=== PATIENT | male | born 1990 | race Caucasian/White ===

== ENCOUNTER 2019-01-31 12:01 | Emergency (ER) | payer BC, MEDICAID ==
[~2019-01-31] VITALS: Ht 175.3 cm; Wt 81.6 kg
--- NOTE | 2019-01-31 12:08 | NUR ---
AT BEDSIDE FOR EVAL.
--- NOTE | 2019-01-31 12:10 | NUR ---
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
[2019-01-31] MEDS ORDERED: ONDANSETRON HCL/PF 4 MG/2 ML VIAL ONE (12:13)
[2019-01-31] MEDS ORDERED: ESCI10TA PO (12:14)
[2019-01-31] MEDS ORDERED: GABA-534 PO (12:14)
[2019-01-31] MEDS ORDERED: ALPR1TAB7 PO (12:14)
--- NOTE | 2019-01-31 12:40 | NUR ---
IV LINE ESTABLISHED, BLOOD DRAWN AND SENT TO LAB.
[2019-01-31 12:42] LABS: BASOPHILS % (AUTO) 0.2 % (0.0-2.0); EOSINOPHILS % (AUTO) 0.2 % (0.0-6.0); HEMATOCRIT 44 % (39-51); HEMOGLOBIN 14.7 g/dL (13.5-17.5); LYMPHOCYTES # (AUTO) 0.9 /CMM (0.8-4.8); MEAN CORPUSCULAR HGB CONC 33 g/dl (31.0-36.0); MEAN CORPUSCULAR VOLUME 90 fL (80-96); MONOCYTES # (AUTO) 0.3 /CMM (0.1-1.30); NEUTROPHILS # (AUTO) 13.9 /CMM (1.8-8.9); NEUTROPHILS % (AUTO) 91.6 % (43.0-81.0); PLATELET COUNT (AUTO) 241 /CMM (150-450); RED BLOOD CELL COUNT(AUTO) 4.92 MIL/uL (4.5-6.0); WHITE BLOOD COUNT (AUTO) 15.1 K/uL (4.3-11.0)
[2019-01-31] MEDS: IV NS 0.9% 1,000 ML BAG IV ONE ×2 (12:44)
[2019-01-31] MEDS: ONDANSETRON HCL/PF 4 MG/2 ML VIAL IVP ONE (12:44)
--- NOTE | 2019-01-31 12:44 | NUR ---
URINE SPECIMEN COLLECTED VIA STRAIGHT CATH AND SENT TO LAB.
--- NOTE | 2019-01-31 12:50 | NUR ---
AUTOMATION QA LEAD AT BEDSIDE FOR XRAY.
[2019-01-31 12:52] LABS: CALCIUM, SERUM 9.2 mg/dL (8.5-10.1); CARBON DIOXIDE 25 mmol/L (21-32); CHLORIDE 105 mmol/L (98-107); CREATININE 1.6 mg/dL (0.6-1.3); GLUCOSE 334 mg/dL (74-106); POTASSIUM 4.2 mmol/L (3.5-5.1); SODIUM SERUM 140 mmol/L (136-145); UREA NITROGEN, BLOOD 19 mg/dL (7-18)
[2019-01-31 12:57] LABS: ALANINE AMINOTRANSFERASE 42 U/L (12-78); ALBUMIN 4.3 g/dL (3.4-5.0); ALCOHOL, BLOOD < 3 mg/dL (0-0); ALKALINE PHOSPHATASE 82 U/L (46-116); ASPARTATE AMINOTRANSFERASE 26 U/L (15-37); BILIRUBIN,DIRECT 0.1 mg/dL (0.0-0.2); BILIRUBIN,TOTAL 0.2 mg/dL (0.2-1.0); TOTAL PROTEIN, SERUM 7.5 g/dL (6.4-8.2)
[2019-01-31 12:58] LABS: ACETAMINOPHEN 0 ug/ml (10-30); SALICYLATE 2.7 mg/dL (2.8-20.0)
[2019-01-31 13:01] LABS: APPEARANCE,URINE Clear (CLEAR); BILIRUBIN,URINE Negative (NEGATIVE); BLOOD, URINE Small Ery/uL (NEGATIVE); COLOR,URINE Yellow (YELLOW); KETONES,URINE Negative (NEGATIVE); LEUKOCYTE ESTERASE ,URINE Negative (NEGATIVE); NITRITE, URINE Negative (NEGATIVE); PROTEIN,URINE Negative (NEGATIVE); UGLUCOSE >=1000 mg/dL (NEGATIVE); UROBILINOGEN,URINE 0.2 EU/dL (0.2)
[2019-01-31 13:05] LABS: BACTERIA,URINE Rare /HPF (None Seen); SQUAMOUS EPITHELIAL CELL,UR Rare /HPF (None Seen); WBC,URINE 0-2 /HPF (0-3)
[2019-01-31 15:17] VITALS: BP 122/76
--- NOTE | 2019-01-31 15:31 | NUR ---
CALLED PT'S MOM, PT WANTS TO BE DISCHARGED.
--- NOTE | 2019-01-31 15:31 | NUR ---
Patient does not wish to proceed with medical care recommended by Dr. Camilo. Patient given information related to possible complications, up to and including , which could occur as a result of leaving the hospital at this time. Patient verbalizes understanding of risks involved due to leaving against medical advice. Patient has signed AMA form.
--- NOTE | 2019-01-31 16:13 | NUR ---
IV removed. Catheter intact and site benign. Pressure and 4x4 applied to site. No bleeding noted.
== END 2019-01-31 16:14 | disposition left against medical advice (07) ==
LOC: ER 12:03
DX: F19.10 Other psychoactive substance abuse, uncomplicated (principal); R73.9 Hyperglycemia, unspecified; Z79.899 Other long term (current) drug therapy
CPT/HCPCS: 36415; 71045; 80048; 80076; 80305; 80307; 80329; 81001; 82962; 85025; 93005; 96374; 99284; G0480; J2405; J7030; 81000-TC

== ENCOUNTER 2020-02-28 14:44 | Emergency (ER) | payer MEDICAID ==
[~2020-02-28] VITALS: Ht 172.7 cm; Wt 81.6 kg
[~2020-02-28 14:44] MED LIST: ALPR1TAB7 PO; ESCI10TA PO; GABA-534 PO
--- NOTE | 2020-02-28 16:00 | NUR ---
PT BIB SELF C/O SI " I WANT TO HANG MY SELF" PT IS AAOX4, NOT IN RESPIRATORY DISTRESS, V/S STABLE, KEPT RESTED AND COMFORTABLE. SITTER AT BEDSIDE. WILL CONTINUE TO MONITOR.
--- NOTE | 2020-02-28 16:15 | NUR ---
URINE SPECIMEN COLLECTED AND SENT TO LAB.
--- NOTE | 2020-02-28 16:20 | NUR ---
PT SEEN AND EXAMINED BY .
--- NOTE | 2020-02-28 16:25 | NUR ---
SECURITY AT BEDSIDE FOR WANDING.
--- NOTE | 2020-02-28 16:27 | NUR ---
ER PHLEB AT BEDSIDE FOR BLOOD DRAW.
[2020-02-28 16:49] LABS: BASOPHILS # (AUTO) 0.1 /CMM (0.0-0.2); BASOPHILS % (AUTO) 0.7 % (0.0-2.0); EOSINOPHILS % (AUTO) 0.8 % (0.0-6.0); HEMATOCRIT 52 % (39-51); HEMOGLOBIN 17.5 g/dL (13.5-17.5); LYMPHOCYTES # (AUTO) 2.2 /CMM (0.8-4.8); LYMPHOCYTES % (AUTO) 19.9 % (20.0-44.0); MEAN CORPUSCULAR HGB CONC 34 g/dl (31.0-36.0); MEAN CORPUSCULAR VOLUME 88 fL (80-96); MONOCYTES # (AUTO) 0.4 /CMM (0.1-1.30); NEUTROPHILS # (AUTO) 8.2 /CMM (1.8-8.9); NEUTROPHILS % (AUTO) 74.6 % (43.0-81.0); PLATELET COUNT (AUTO) 288 /CMM (150-450); RED BLOOD CELL COUNT(AUTO) 5.82 MIL/uL (4.5-6.0)
--- NOTE | 2020-02-28 16:50 | NUR ---
COVID SPECIMEN OBTAINED AND SENT TO LAB.
[2020-02-28 17:47] LABS: BILIRUBIN,URINE SMALL (NEGATIVE); BLOOD, URINE NEGATIVE Ery/uL (NEGATIVE); COLOR,URINE YELLOW (YELLOW); LEUKOCYTE ESTERASE ,URINE NEGATIVE (NEGATIVE); NITRITE, URINE NEGATIVE (NEGATIVE); PROTEIN,URINE TRACE mg/dl (NEGATIVE); UGLUCOSE NEGATIVE (NEGATIVE)
--- NOTE | 2020-02-28 18:09 | NUR ---
LAB CALLED PT COVID RESULT POSITIVE (+)
[2020-02-28 18:13] LABS: BACTERIA,URINE None seen /HPF (None Seen); RBC,URINE 0-2 /HPF (0-2); SQUAMOUS EPITHELIAL CELL,UR Few /HPF (None Seen); WBC,URINE 0-2 /HPF (0-3)
[2020-02-28 19:56] LABS: ALANINE AMINOTRANSFERASE 22 U/L (12-78); ALBUMIN 4.6 g/dL (3.4-5.0); ALKALINE PHOSPHATASE 90 U/L (46-116); ASPARTATE AMINOTRANSFERASE 18 U/L (15-37); BILIRUBIN,DIRECT 0.2 mg/dL (0.0-0.2); BILIRUBIN,TOTAL 0.6 mg/dL (0.2-1.0); CARBON DIOXIDE 26 mmol/L (21-32); CHLORIDE 102 mmol/L (98-107); CREATININE 1.2 mg/dL (0.6-1.3); GLUCOSE 92 mg/dL (74-106); POTASSIUM 4.4 mmol/L (3.5-5.1); SODIUM SERUM 143 mmol/L (136-145); TOTAL PROTEIN, SERUM 8.3 g/dL (6.4-8.2); UREA NITROGEN, BLOOD 10 mg/dL (7-18)
[2020-02-28 20:07] LABS: CALCIUM, SERUM 10.2 mg/dL (8.5-10.1)
[2020-02-28 20:30] LABS: ACETAMINOPHEN 0 ug/ml (10-30)
[2020-02-28] MEDS ORDERED: OLANZAPINE 5 MG TABLET ONE (20:34)
[2020-02-28 20:59] LABS: ALCOHOL, BLOOD < 3 mg/dL (0-0)
[2020-02-28] MEDS ORDERED: OLANZAPINE 5 MG TABLET PO ONE (21:00)
--- NOTE | 2020-02-29 02:13 | NUR ---
TRANSFER INFORMATION: PT ACCEPTED TO [facility] ACCEPTING MD: DR. MIGUEL NUMBER FOR REPORT: [phone] EXT [id number]
--- NOTE | 2020-02-29 02:20 | NUR ---
TASH[facility] PRO [id number] TRIP #[id number]
--- NOTE | 2020-02-29 02:27 | NUR ---
REPORT GIVEN TO NOELLE BROWN FOR ZUNILDA Addendum: 02/29/20 at 0229 by KEELEY BED ASSIGNMENT [id number]
[2020-02-29 03:35] VITALS: BP 126/80
--- NOTE | 2020-02-29 03:37 | NUR ---
REPORT GIVEN TO TASHI FOR TRANSPORTATION ZUNILDA. PT TRANSFERRED TO [facility] IN STABLE CONDITION
== END 2020-02-29 03:43 ==
LOC: ER 14:50
DX: R45.851 Suicidal ideations (principal); F29 Unspecified psychosis not due to a substance or known physiological condition; U07.1 COVID-19; Z79.899 Other long term (current) drug therapy; R03.0 Elevated blood-pressure reading, without diagnosis of hypertension
CPT/HCPCS: 36415; 80048; 80076; 80299; 80307; 80320; 81001; 85025; 87426; 99285; C9803; G0480

== ENCOUNTER 2020-03-11 18:02 | Emergency (ER) | payer MEDICAID ==
[~2020-03-11] VITALS: Ht 172.7 cm; Wt 74.8 kg
[2020-03-11 19:05] LABS: BILIRUBIN,URINE SMALL (NEGATIVE); BLOOD, URINE Negative Ery/uL (NEGATIVE); COLOR,URINE DARK YELLOW (YELLOW); LEUKOCYTE ESTERASE ,URINE Negative (NEGATIVE); NITRITE, URINE Negative (NEGATIVE); PROTEIN,URINE Trace mg/dl (NEGATIVE); UGLUCOSE Negative (NEGATIVE)
[2020-03-11 19:12] LABS: BASOPHILS % (AUTO) 0.4 % (0.0-2.0); HEMATOCRIT 50 % (39-51); HEMOGLOBIN 16.6 g/dL (13.5-17.5); LYMPHOCYTES # (AUTO) 3.1 /CMM (0.8-4.8); LYMPHOCYTES % (AUTO) 23.3 % (20.0-44.0); MEAN CORPUSCULAR HGB CONC 34 g/dl (31.0-36.0); MEAN CORPUSCULAR VOLUME 88 fL (80-96); MONOCYTES # (AUTO) 0.8 /CMM (0.1-1.30); MONOCYTES % (AUTO) 5.7 % (2.0-12.0); NEUTROPHILS # (AUTO) 9.2 /CMM (1.8-8.9); NEUTROPHILS % (AUTO) 69.6 % (43.0-81.0); PLATELET COUNT (AUTO) 262 /CMM (150-450); RED BLOOD CELL COUNT(AUTO) 5.63 MIL/uL (4.5-6.0); WHITE BLOOD COUNT (AUTO) 13.2 K/uL (4.3-11.0)
[2020-03-11 19:18] LABS: BACTERIA,URINE Rare /HPF (None Seen); RBC,URINE NONE SEEN /HPF (0-2); SQUAMOUS EPITHELIAL CELL,UR Few /HPF (None Seen); WBC,URINE NONE SEEN /HPF (0-3)
[2020-03-11 19:20] LABS: CALCIUM, SERUM 9.5 mg/dL (8.5-10.1); CARBON DIOXIDE 26 mmol/L (21-32); CHLORIDE 104 mmol/L (98-107); CREATININE 0.9 mg/dL (0.6-1.3); GLUCOSE 116 mg/dL (74-106); POTASSIUM 3.9 mmol/L (3.5-5.1); SODIUM SERUM 142 mmol/L (136-145); UREA NITROGEN, BLOOD 13 mg/dL (7-18)
--- NOTE | 2020-03-11 19:31 | NUR ---
PT AAOX4. AMBULATORY WITH STEADY GAIT. BIBSELF C/O "suicidal ideation" WITH A PLAN TO CUT HIS WRIST. PT PLACED IN GOWN, ON MONITOR AND PULSE OX. PT BELONINGS PLACED IN LOCKER. VSS. AWAITING MD FOR EVAL.
[2020-03-11 19:33] LABS: ACETAMINOPHEN < 2 ug/ml (10-30); ALANINE AMINOTRANSFERASE 16 U/L (12-78); ALBUMIN 4.1 g/dL (3.4-5.0); ALCOHOL, BLOOD 6 mg/dL (0-0); ALKALINE PHOSPHATASE 80 U/L (46-116); ASPARTATE AMINOTRANSFERASE 12 U/L (15-37); BILIRUBIN,DIRECT 0.1 mg/dL (0.0-0.2); BILIRUBIN,TOTAL 0.3 mg/dL (0.2-1.0); TOTAL PROTEIN, SERUM 7.5 g/dL (6.4-8.2)
--- NOTE | 2020-03-11 20:41 | NUR ---
CHRISTYID SWABBED, SENT TO LAB.
--- NOTE | 2020-03-11 21:33 | NUR ---
LAB CALLED REGARDING POSITIVE COVID RESULT.
--- NOTE | 2020-03-11 22:17 | NUR ---
PATIENT IS RESTING. WATCHING TELEVISION. BREATHING EVENLY AND UNLABORED ON ROOM AIR. CONNECTED TO THE MONITOR. SITTER AT BEDSIDE. BED AT THE LOWEST POSITION. SIDE RAILS ARE UP FOR SAFETY.
--- NOTE | 2020-03-11 23:27 | NUR ---
SPOKE TO RAMIRO (PT'S MOTHER) UPDATED PLAN OF CARE. REJI (PT) GAVE CONSENT TO ME TO UPDATE HIS MOTHER. VSS.
--- NOTE | 2020-03-12 00:16 | NUR ---
SPOKE TO [facility], NO BEDS AVAILABLE AT THIS TIME.
--- NOTE | 2020-03-12 02:39 | NUR ---
PATIENT IS SLEEPING. BREATHING EVENLY AND UNLABORED ON ROOM AIR. CONNECTED TO THE MONITOR. BED AT THE LOWEST POSITION. NOT IN ANY DISTERSS. SITTER IS AT E BEDSIDE.
--- NOTE | 2020-03-12 06:01 | NUR ---
PT REMAINS ASLEEP, VSS.
--- NOTE | 2020-03-12 10:12 | NUR ---
KING followed up with [facility] referral made. KING spoke with Chel at [facility]3] . [place] informed this SW that clinicals have been reviewed and patient is pending acceptance, waiting on a COVID-19 positive bed for this patient. Plan: This SW will coordinate with Chel at [facility] regarding referral. KING will also follow-up with Raúl at [facility] regarding referral. KING remains available for all needs regarding this patient.
--- NOTE | 2020-03-12 10:42 | NUR ---
KING spoke with Raúl at [facility] regarding referral. Raúl informed this SW that [facility] location is the only location accepting COVID positive patients at this time. Raúl informed this SW that Raúl will oversee the status of this referral to ensure a safe and proper transfer to [facility].
--- NOTE | 2020-03-12 11:21 | NUR ---
NINA JUNE. ACCEPTED AT [facility] ACCEPTED BY DR. JACOBSEN AND DR. DELANEY. SEND PATIENT AFTER 1300. NUMBER FOR REPORT: [phone] EXT [phone].
--- NOTE | 2020-03-12 11:31 | NUR ---
CALLED AM JOSIAH FOR 1330 SET UP BY DELON
--- NOTE | 2020-03-12 13:43 | NUR ---
REPORT GIVEN TO EMETERIO DRAKE AT [facility]. WILL GO TO ROOM 435.
[2020-03-12 13:48] VITALS: BP 110/67
--- NOTE | 2020-03-12 13:55 | NUR ---
PATIENT TRANSFERRED TO [facility]. PATIENT IN STABLE CONDITION. NO DSITRESS NOTED. REPORT GIVEN TO PARTS CLEANER.
== END 2020-03-12 15:07 ==
LOC: ER 18:06
DX: R45.851 Suicidal ideations (principal); U07.1 COVID-19; F19.10 Other psychoactive substance abuse, uncomplicated; F12.10 Cannabis abuse, uncomplicated; R03.0 Elevated blood-pressure reading, without diagnosis of hypertension; F25.9 Schizoaffective disorder, unspecified; F41.0 Panic disorder [episodic paroxysmal anxiety]; Z79.899 Other long term (current) drug therapy
CPT/HCPCS: 36415; 80048; 80076; 80299; 80307; 80320; 81001; 85025; 87426; 99285; C9803; G0480

== ENCOUNTER 2024-03-12 04:30 | Emergency (ER) | payer MEDICAID ==
[~2024-03-12] VITALS: Ht 182.9 cm; Wt 102.1 kg
[2024-03-12 05:21] LABS: BASOPHILS # (AUTO) 0.1 K/uL (0.0-0.2); BASOPHILS % (AUTO) 0.9 % (0.0-2.0); EOSINOPHILS # (AUTO) 0.1 K/uL (0.0-0.7); EOSINOPHILS % (AUTO) 1.9 % (0.0-6.0); HEMATOCRIT 43 % (39-51); HEMOGLOBIN 15.1 g/dL (13.5-17.5); LYMPHOCYTES # (AUTO) 2.9 K/uL (0.8-4.8); LYMPHOCYTES % (AUTO) 44.6 % (20.0-44.0); MEAN CORPUSCULAR HEMOGLOBIN 29 PG (26.0-33.0); MEAN CORPUSCULAR HGB CONC 35 g/dl (31.0-36.0); MEAN CORPUSCULAR VOLUME 83 fL (80-96); MONOCYTES # (AUTO) 0.5 K/uL (0.1-1.30); MONOCYTES % (AUTO) 8.1 % (2.0-12.0); NEUTROPHILS # (AUTO) 2.9 K/uL (1.8-8.9); NEUTROPHILS % (AUTO) 44.5 % (43.0-81.0); PLATELET COUNT (AUTO) 262 K/uL (150-450); RED BLOOD CELL COUNT(AUTO) 5.23 MIL/uL (4.5-6.0); RED CELL DISTRIBUTION WIDTH 13.2 % (11.5-15.0); WHITE BLOOD COUNT (AUTO) 6.5 K/uL (4.3-11.0)
[2024-03-12 05:28] LABS: CALCIUM, SERUM 9.5 mg/dL (8.5-10.1); CARBON DIOXIDE 29 mmol/L (21-32); CHLORIDE 104 mmol/L (98-107); CREATININE 1.1 mg/dL (0.6-1.3); GLUCOSE 113 mg/dL (74-106); POTASSIUM 3.6 mmol/L (3.5-5.1); SODIUM SERUM 138 mmol/L (136-145); UREA NITROGEN, BLOOD 10 mg/dL (7-18)
[2024-03-12 05:34] LABS: ALANINE AMINOTRANSFERASE 44 U/L (12-78); ALBUMIN 4.7 g/dL (3.4-5.0); ALCOHOL, BLOOD < 3 mg/dL (0-10); ALKALINE PHOSPHATASE 68 U/L (46-116); ASPARTATE AMINOTRANSFERASE 47 U/L (15-37); BILIRUBIN,TOTAL 0.5 mg/dL (0.2-1.0); TOTAL PROTEIN, SERUM 7.6 g/dL (6.4-8.2)
[2024-03-12 07:47] LABS: APPEARANCE,URINE CLEAR (CLEAR); BILIRUBIN,URINE 1+ (NEGATIVE); BLOOD, URINE NEGATIVE Ery/uL (NEGATIVE); COLOR,URINE YELLOW (YELLOW); KETONES,URINE 1+ mg/dL (NEGATIVE); LEUKOCYTE ESTERASE ,URINE NEGATIVE (NEGATIVE); NITRITE, URINE NEGATIVE (NEGATIVE); PH,URINE 5.5 (5.0-8.0); PROTEIN,URINE 1+ mg/dl (NEGATIVE); UGLUCOSE NEGATIVE (NEGATIVE); UROBILINOGEN,URINE 0.2 EU/dL (0.2)
[2024-03-12 07:57] LABS: AMPHETAMINE, URINE NEGATIVE (NEGATIVE); BARBITURATE, URINE NEGATIVE (NEGATIVE); BENZODIAZEPINE, URINE NEGATIVE (NEGATIVE); CANNABINOID, URINE NEGATIVE (NEGATIVE); COCCAINE, URINE NEGATIVE (NEGATIVE); OPIATE, URINE NEGATIVE (NEGATIVE); PHENCYCLIDINE SCREEN,URINE NEGATIVE (NEGATIVE)
[2024-03-12 08:22] LABS: RBC,URINE 0-2 /HPF (0-2); WBC,URINE NONE SEEN /HPF (0-3)
[2024-03-12 08:23] LABS: ADD URINE CULTURE NO; BACTERIA,URINE 1+ /HPF (None Seen); CALCIUM OXALATE CRYSTALS,UR Rare /HPF (None Seen); URIC ACID CRYSTALS,URINE Moderate /HPF (None Seen)
[2024-03-12 08:24] LABS: SPERM,URINE Few /HPF (None Seen)
[2024-03-12 08:48] VITALS: BP 124/87; TEMP 98.1; O2SAT 97
== END 2024-03-12 08:49 | disposition home or self-care (01) ==
LOC: ER 04:35
DX: R33.9 Retention of urine, unspecified (principal); Z79.899 Other long term (current) drug therapy
CPT/HCPCS: 36415; 80053-TC; 81001; 85025-TC; G0480